=== PATIENT | female | born 1995 | race Caucasian/White ===

== ENCOUNTER 2019-11-23 12:18 | Emergency (ER) | payer OTHER ==
[~2019-11-23] VITALS: Ht 165.1 cm; Wt 90.7 kg
--- NOTE | 2019-11-23 12:24 | NUR ---
ARRIVAL PT ARRIVED TO ED WITH C/O SORETHROAT, HEADACHE AND LEFT EAR PAIN X3 DAYS. BEDSIDE MONITORS APPLIED. VITAL SIGNS STABLE. BED IN LOW LOCKED POSITION. MOTHER AT BEDSIDE.
[2019-11-23 12:28] VITALS: BP 121/53
[2019-11-23] MEDS ORDERED: BICILLIN L-A IM STA (12:30)
[2019-11-23 12:31] VITALS: BP 121/53
[2019-11-23] MEDS ORDERED: BICILLIN L-A IM ONE (12:32)
--- NOTE | 2019-11-23 12:36 | ER.PDOC ---
General Chief Complaint: Sore Throat Stated Complaint: SORE THROAT Time seen by MD: 12:22 Source: patient Exam Limitations: no limitations History of Present Illness Initial Comments 2 DAYS, MORE ON L SIDE Timing/Duration: gradual Associated Symptoms: mod sore throat, earache (L) Severity: moderate Prior symptoms/Treatment: Similar symptoms previous Past Medical History Medical History: no pertinent history Surgical History: other Social History Alcohol Use: none Drug Use: none Reviewed Nursing Reviewed: Vital Signs, Abn. Noted All Other Systems: Reviewed and Negative Physical Exam General Appearance: alert, no distress Head/Neck: head nml inspection, neck nml inspection, trachea midline, no lymphadenopathy, thyroid nml, cervical lymphadenopathy Eyes: eyes nml inspection, PERRL, no nystagmus Mouth: lips, gums nml, no drooling, no thrush, membranes nml Throat: pharyngeal erythema Ears/Nose: nml inspection Respiratory: no resp. distress, lungs clear CVS: reg. rate & rhythm, heart sounds nml Abdomen: non-tender, no organomegaly Extremities: non-tender, ROM nml NEURO/PSYCH: oriented X3, mood/effect nml Results/Orders Results/Orders Orders - NAZIA PHAM MD Penicillin G Benzathine (Bicillin L-A) (11/23/19 12:30) Vital Signs Date Time Temp Pulse Resp B/P (MAP) Pulse Ox O2 Delivery O2 Flow Rate FiO2 11/23/19 12:28 98.5 94 14 96 11/23/19 12:28 98.5 94 14 121/53 (75) 96 Room Air 11/23/19 12:28 98.5 94 14 ER DEPART Departure Time of Disposition: 12:33 Disposition: 01 HOME, SELF-CARE Impression: Primary Impression: Acute tonsillitis Condition: Stable Referrals: PCP,UNKNOWN (PCP) PRIMARY CARE PROVIDER Duration or Time Spent with Pa: 14M NAZIA PHAM MD Nov 23, 2019 12:36
== END 2019-11-23 12:50 | disposition home or self-care (01) ==
LOC: ER 12:18
DX: J03.90 Acute tonsillitis, unspecified (principal)
CPT/HCPCS: 96372; 99283; J0561